=== PATIENT | female | born 1980 | race African-American/Black ===

== ENCOUNTER 2024-02-17 19:13 | Emergency (ER) | payer OTHER, SELFPAY ==
--- NOTE | ~2024-02-17 | CT_ITS ---
EXAMINATION: CT abdomen pelvis w con DATE: 02/17/2024 21:56 INDICATION: Abdominal pain recent hernia surgery TECHNIQUE: Computed tomography (CT) of the abdomen and pelvis was performed with 100 mL Omnipaque-350 intravenous contrast. Automated exposure control and iterative reconstruction technique were employe d. The dose-length product was 1494.38 mGy-cm. COMPARISON: None. FINDINGS: Lower thorax: Unremarkable Liver: Normal. Biliary/Gallbladder: Gallbladder is normal. No bile duct dilation. Pancreas: No mass or duct dilation. Spleen: Normal. Adrenals:No mass. Kidneys: No suspicious mass, obstructing stone, or hydronephrosis. Subcentimeter left midpole hypoden sity, too small to characterize but likely represents a cyst. GI tract: No small or large bowel dilation. Normal appendix. Mesentery/Peritoneum: No ascites, mass, or free air. Retroperitoneum: No mass. Pelvis: Absent uterus. Normal ovaries. 1.8 cm simple right ovarian cyst which requires no additional evaluation. Normal partially decompressed urinary bladder. Soft Tissues: Small fat-containing umbilical and supraumbilical hernias, with minimal surrounding str anding, including minimal stranding in the anterior intra-abdominal fat. Bones: No acute osseous finding. IMPRESSION: Small fat-containing umbilical and supraumbilical hernias with mild adjacent fat stranding superficia l and deep to the abdominal wall, possibly related to resolving postsurgical change, depending on the timing of the recent procedure. Otherwise, no acute abdominopelvic process detected. Reviewed, dictated and finalized at location K. IMPRESSION: Small fat-containing umbilical and supraumbilical hernias with mild adjacent fa t stranding superficial and deep to the abdominal wall, possibly related to res olving postsurgical change, depending on the timing of the recent procedure. Otherwise, no acute abdominopelvic process detected.
[2024-02-17 19:15] VITALS: BP 122/82; PULSE 108; RESP 15; TEMP 36.6; O2SAT 100
[2024-02-17 19:33] LABS: Basophils Percent Auto 0.3 % (0.2-1.2); Eosinophils Percent Auto 0.6 % (0-4.4); Hematocrit 43.7 % (37.0-47.0); Hemoglobin 14.6 g/dL (12.0-15.0); Immature Granulocyte Absolute 0.01 K/mm3 (0.00-0.031); Immature Granulocyte Percent A 0.1 % (0-0.5); Lymphocytes Absolute Auto 1.98 K/mm3 (0.9-3.2); Lymphocytes Percent Auto 29.6 % (18.3-44.2); Mean Corpuscular HGB Conc 33.4 g/dl (32-36); Mean Corpuscular Hemoglobin 32.2 pg (26-34); Mean Corpuscular Volume 96.3 fl (80-100); Mean Platelet Volume 10.8 fl (7.4-10.4); Monocytes Absolute Auto 0.5 K/mm3 (0.1-0.6); Monocytes Percent Auto 7.2 % (2.6-8.5); Neutrophils Absolute Auto 4.2 K/mm3 (1.3-6.7); Neutrophils Percent Auto 62.2 % (45.5-73.1); Platelet Count Result 232 k/mm3 (150-375); Red Blood Count 4.54 M/mm3 (4.2-5.4); Red Cell Distribution Width 14.3 % (11.5-14.5); White Blood Count 6.7 K/mm3 (4.5-10.0)
[2024-02-17 19:43] LABS: Alanine Aminotransferase 25 U/L (6-35); Albumin Level 4.2 g/dL (3.5-5.1); Alkaline Phosphatase 86 U/L (38-126); Anion Gap 9 mmol/L (4-12); Aspartate Amino Transferase 25 U/L (14-36); Bilirubin,Total 0.7 mg/dL (0.2-1.3); Blood Urea Nitrogen 12 mg/dL (7-17); Calcium 9.4 mg/dL (8.4-10.2); Carbon Dioxide 25 mmol/L (22-30); Chloride 107 mmol/L (98-107); Estimated CRCL calculation 146 ml/min; Estimated Glomerular Filt Rate > 60; Glucose 135 mg/dL (65-110); Lipase 66 U/L (23-300); Sodium 141 mmol/L (137-145)
[2024-02-17 20:00] VITALS: BP 125/90; PULSE 98; RESP 16; O2SAT 97
[2024-02-17] MEDS: SODIUM CHLORIDE 0.9% IV 1,000 ML 999 ML IV CONT (20:50)
[2024-02-17] MEDS: ONDANSETRON INJ 4 MG/2 ML VIAL IV PUSH (20:51)
[2024-02-17] MEDS: MORPHINE SULFATE (*CRX) 4 MG/ML INJ IV PUSH (20:53)
[2024-02-17] MEDS: PANTOPRAZOLE SODIUM IV 40 MG VIAL IV PUSH (21:18)
[2024-02-17] MEDS: PROCHLORPERAZINE EDISYLATE 10 MG/2 ML VIAL IV PUSH (21:19)
[2024-02-17 21:39] VITALS: BP 115/77; PULSE 102; RESP 16; O2SAT 94
[2024-02-17 21:54] LABS: Appearance Urine Cloudy (Clear); Bacteria Urine None Seen /hpf; Bilirubin Urine Negative (Negative); Blood Urine Negative (Negative); Color Urine Dark Yellow (Yellow); Glucose Urine UA Negative (Negative); Ketones Urine 3+ mg/dL (Negative); Leukocyte Esterase Ur Negative LEU/UL (Negative); Mucus Urine Present /lpf; Need Manual Microscopic Reviewed; Nitrate Urine Negative (Negative); Protein Urine 1+ mg/dL (Negative); RBC Urine 0-2 /hpf (0-2); Specific Grav Ur 1.029 (1.001-1.035); Squamous Epithelial Cell Urine Few /hpf (Few); WBC Urine 0-5 /hpf (0-3)
[2024-02-17 21:55] LABS: Add Urine Microscopic? YES
--- NOTE | 2024-02-17 23:10 | ED.GENADULT ---
HPI - General Adult General Chief complaint: Nausea/Vomiting/Diarrhea Stated complaint: nausea vomiting Time Seen by Provider: 02/17/24 20:09 History of Present Illness HPI narrative: patient is a 43-year-old female who presents emergency department with chief complaint of abdominal pain. Patient reports that she has had some nausea vomiting for last few days reports that she had a recent hernia surgery on the of last month. Patient reports that she had her surgery at another facility patient reports no drainage from the sites Related Data Allergies Allergy/AdvReac Type Severity Reaction Status Date / Time hydrocodone Allergy Unknown Verified 02/17/24 20:00 Review of Systems Review of Systems: A 10 system review of systems was completed on the patient and is negative except for what is stated in the HPI. Nursing and ancillary documentation was reviewed. Exam Narrative: GENERAL: Well-appearing, well-nourished, and in no acute distress. HEAD: Normocephalic, atraumatic. EYES: PERRLA and EOMI. ENT: Nares clear, no rhinorrhea or epistaxis. Mucous membranes moist. NECK: Supple. CHEST: Clear to auscultation. No respiratory distress. HEART: Regular rate and rhythm. No murmur heard. Normal peripheral pulses. ABDOMEN: Soft, diffuse tenderness to palpation, nondistended, normal active bowel sounds. EXTREMITIES: Normal range of motion. No edema. SKIN: Warm, dry, no rash. NEURO: No focal deficits. Alert and oriented x3. PSYCH: Normal mood and affect. Course Vital Signs Vital signs: Vital Signs Temperature 36.6 C 02/17/24 19:15 Pulse Rate 108 H 02/17/24 19:15 Respiratory Rate 15 02/17/24 19:15 Blood Pressure 122/82 02/17/24 19:15 Pulse Oximetry 100 02/17/24 19:15 Temperature 36.6 C 02/17/24 19:15 Pulse Rate 102 H 02/17/24 21:39 Respiratory Rate 16 02/17/24 21:39 Blood Pressure 115/77 02/17/24 21:39 Pulse Oximetry 94 02/17/24 21:39 Medical Decision Making [facility] Narrative Medical decision making narrative: differential diagnosis includes intra-abdominal infection, incarcerated hernia, intra-abdominal abscess laboratory studies were obtained on the patient white count 6.7 electrolytes are within normal limits lipase was normal urinalysis showed no evidence UTI CT scan of the abdomen pelvis showed Small fat-containing umbilical and supraumbilical hernias with mild adjacent fat stranding superficial and deep to the abdominal wall, possibly related to resolving postsurgical change, depending on the timing of the recent procedure. Otherwise, no acute abdominopelvic process detected. patient is feeling much better at this time patient discharged home to follow-up with her surgeon Vital Signs Vital Signs: Vital Signs Temperature 36.6 C 02/17/24 19:15 Pulse Rate 108 H 02/17/24 19:15 Respiratory Rate 15 02/17/24 19:15 Blood Pressure 122/82 02/17/24 19:15 Pulse Oximetry 100 02/17/24 19:15 Temperature 36.6 C 02/17/24 19:15 Pulse Rate 102 H 02/17/24 21:39 Respiratory Rate 16 02/17/24 21:39 Blood Pressure 115/77 02/17/24 21:39 Pulse Oximetry 94 02/17/24 21:39 Lab Data 02/17/24 19:26 02/17/24 19:25 Labs: Lab Results 02/17/24 02/17/24 02/17/24 Range/Units 19:25 19:26 21:35 WBC 6.7 (4.5-10.0) K/mm3 RBC 4.54 (4.2-5.4) M/mm3 Hgb 14.6 (12.0-15.0) g/dL Hct 43.7 (37.0-47.0) % MCV 96.3 (80-100) fl MCH 32.2 (26-34) pg MCHC 33.4 (32-36) g/dl RDW 14.3 (11.5-14.5) % Plt Count 232 (150-375) k/mm3 MPV 10.8 H (7.4-10.4) fl Immature Gran % (Auto) 0.1 (0-0.5) % Neut % (Auto) 62.2 (45.5-73.1) % Lymph % (Auto) 29.6 (18.3-44.2) % Mcclain % (Auto) 7.2 (2.6-8.5) % Eos % (Auto) 0.6 (0-4.4) % Baso % (Auto) 0.3 (0.2-1.2) % Lymph # (Auto) 1.98 (0.9-3.2) K/mm3 Mcclain # (Auto) 0.5 (0.1-0.6) K/mm3 Eos # (Auto) 0.0 (0-0.
[2024-02-17 23:21] VITALS: BP 145/78; PULSE 97; RESP 16; O2SAT 100
== END 2024-02-17 22:47 | disposition home or self-care (01) ==
PROVIDERS: Emergency Provider Emergency Medicine
DX: K42.9 Umbilical hernia without obstruction or gangrene (principal); R10.84 Generalized abdominal pain
CPT/HCPCS: 36415; 74177; 80053; 81001; 81025; 83690; 85025; 96361; 96374; 96375; 99284; C9113; J0780; J2270; J2405; J7030; Q9967